=== PATIENT | male | born 1995 ===

== ENCOUNTER → 2018-01-01 | Outpatient (CLI) | payer OTHER ==
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
== END | disposition home or self-care (01) ==
LOC: C.RDSM 13:53
PROVIDERS: ATTEND Family Medicine
DX: R29.898 Other symptoms and signs involving the musculoskeletal system (principal); G56.32 Lesion of radial nerve, left upper limb; G56.22 Lesion of ulnar nerve, left upper limb